=== PATIENT | female | born 1980 | race Caucasian/White ===

== ENCOUNTER 2022-01-03 18:56 | Emergency (ER) | payer SELFPAY ==
[~2022-01-03 18:56] MED LIST: BACTRIM DS 8001 TAB PO; CEPHALEXIN500 M1 PO; DEPO-PROVER150 MG/ML IM; DOXYCYCLINE 10100 MG PO; PRIMATENE0.22 MG/AC IH; SEPTRA DS 8001 TAB PO
[2022-01-03 19:11] VITALS: TEMP 97.9
[2022-01-03] MEDS ORDERED: PREDNISONE20 MG PO ×2 (19:29)
[2022-01-03] MEDS ORDERED: ZITHROMAX 250M250 MG PO ×2 (19:29)
[2022-01-03 20:03] VITALS: BP 142/92; PULSE 101
[2022-01-04] MEDS ORDERED: ZITHROMAX 250M250 MG PO (10:59)
[2022-01-04] MEDS ORDERED: PREDNISONE20 MG PO (10:59)
== END 2022-01-03 20:03 | disposition home or self-care (01) ==
LOC: COL.ER 18:56
DX: J45.909 Unspecified asthma, uncomplicated (principal); F17.210 Nicotine dependence, cigarettes, uncomplicated; Z20.822 Contact with and (suspected) exposure to COVID-19
CPT/HCPCS: J7512